=== PATIENT | male | born 1940 | race Caucasian/White ===

== ENCOUNTER 2017-04-26 22:48 | Inpatient (IN) | payer OTHER, BC ==
[~2017-04-26] VITALS: Ht 175.3 cm; Wt 102.1 kg
[~2017-04-26 22:48] MED LIST: AMLODIPINE BESY10 MG PO; ASPIRIN81 M2 PO; CRESTOR5 MG PO; DICLOFENAC SODI75 MG PO; DOCUSATE SODIU100 MG PO; FERROUS SULFAT325 MG PO; KLONOPIN0.5 M1 PO; LIDOCAINE700 MG TD; LOPRESSOR50 MG PO; LYRICA100 MG PO; NIASPAN,SLO-NI500 MG PO; PANTOPRAZOLE SO40 MG PO; PERCOCET 5/31 TABLET PO; REQUIP1 MG PO; SERTRALINE HCL50 MG PO; SYNTHROID100 MCG PO
[2017-04-26 23:43] LABS: EOSINOPHIL (%) 1.8 % (0-5); EOSINOPHIL COUNT 0.2 K/uL (0-0.3); HEMATOCRIT 40.3 % (38.0-50.0); IMMATURE GRANULOCYTE (%) 0.4 % (0.0-0.7); INSTRUMENT ABS NEUTROPHIL CT 9.1 K/uL; LYMPHOCYTE COUNT 0.9 K/uL (1.0-2.8); MCH 32.2 PG (29.0-34.0); MCHC 33.5 G/DL (30.0-36.0); MCV 96.2 FL (86-99); MEAN PLAT.VOLUME 11.2 uM^3 (9.0-12.4); MONOCYTE (%) 6.5 % (3-12); MONOCYTE COUNT 0.7 K/uL (0-0.8); NEUTROPHIL COUNT 9.1 K/uL (1.8-6.4); PLATELET COUNT 138 K/uL (156-360); RBC DIS.WIDTH-CV 13.9 % (11.8-14.6); RED BLOOD COUNT 4.19 M/uL (4.00-5.50)
[2017-04-26 23:55] LABS: CHLORIDE 104 mEq/L (99-109); POTASSIUM 4.2 mEq/L (3.7-5.4); SODIUM 142 mEq/L (136-147)
[2017-04-26 23:57] LABS: GLUCOSE 144 mg/dL (70-99)
[2017-04-26 23:58] LABS: ANION GAP 16 MEQ/L (2-14)
[2017-04-27 00:01] LABS: GFR ESTIMATE (CALCULATED) 49 mL/min/
[2017-04-27 00:02] LABS: UREA NITROGEN (BUN) 23 mg/dL (9-23)
[2017-04-27 00:03] LABS: TROP-I INTERPRETATION NEGATIVE; TROPONIN-I 0.03 ng/mL (0.0-0.30)
[2017-04-27 03:50] VITALS: BP 129/69
[2017-04-27 07:35] LABS: TROP-I INTERPRETATION NEGATIVE; TROPONIN-I 0.02 ng/mL (0.0-0.30)
[2017-04-27 07:59] VITALS: BP 111/60
[2017-04-27 12:45] LABS: ADD MIUA? YES; BILIRUBIN NEGATIVE; BLOOD LARGE; COLOR STRAW ((YELLOW)); GLUCOSE (STRIP) NEGATIVE; KETONES NEGATIVE; LEUKOCYTES NEGATIVE; NITRITE NEGATIVE; PROTEIN (STRIP) NEGATIVE; SPECIFIC GRAVITY 1.005 (1.000-1.030); UROBILINOGEN 0.2 MG/DL (0.2-1.0)
[2017-04-27 12:48] LABS: BACTERIA RARE /HPF; EPITHELIAL CELLS NONE SEEN /HPF; MUCUS TRACE /LPF; RED BLOOD CELLS TNTC /HPF (0-5); UCUL ADDED? YES; WHITE BLOOD CELLS 0-5 /HPF (0-5)
[2017-04-27] MEDS ORDERED: DAILY VITE1 EAC1 PO (15:43)
[2017-04-27] MEDS ORDERED: LASIX40 MG PO (15:47)
[2017-04-27] MEDS ORDERED: VALTREX1000 MG PO (15:48)
[2017-04-27] MEDS ORDERED: TEMOVATE 0.05%30 GM TP (15:48)
[2017-04-27] MEDS ORDERED: EXTRA STRENGTH500 M1 PO (15:51)
[2017-04-27] MEDS ORDERED: ELIQUIS5 MG PO (15:52)
[2017-04-27 23:38] VITALS: BP 126/72
[2017-04-28 06:34] LABS: EOSINOPHIL (%) 0 % (0-5); HEMATOCRIT 36.1 % (38.0-50.0); IMMATURE GRANULOCYTE (%) 0.5 % (0.0-0.7); INSTRUMENT ABS NEUTROPHIL CT 7.2 K/uL; LYMPHOCYTE COUNT 0.4 K/uL (1.0-2.8); MCHC 33.8 G/DL (30.0-36.0); MCV 97.6 FL (86-99); MEAN PLAT.VOLUME 11.2 uM^3 (9.0-12.4); MONOCYTE (%) 2.4 % (3-12); MONOCYTE COUNT 0.2 K/uL (0-0.8); NEUTROPHIL COUNT 7.2 K/uL (1.8-6.4); PLATELET COUNT 110 K/uL (156-360); RBC DIS.WIDTH-SD 50.4 % (39-53); WHITE BLOOD COUNT 7.8 K/uL (4.1-10.2)
[2017-04-28 06:57] LABS: ANION GAP 10 MEQ/L (2-14); CHLORIDE 106 MEQ/L (99-109); GFR ESTIMATE (CALCULATED) 53 mL/min/; GLUCOSE 142 mg/dL (70-99); POTASSIUM 4.5 MEQ/L (3.7-5.4); SAMPLE HEMOLYSIS CHECK 0; SAMPLE ICTERIC CHECK 0; SAMPLE LIPEMIA CHECK 0; SODIUM 142 MEQ/L (136-147); UREA NITROGEN (BUN) 27 mg/dL (9-23)
[2017-04-28 07:48] VITALS: BP 105/61
[2017-04-28 08:22] LABS: INTERNAL CONTROL VALID? YES
[2017-04-28] MEDS ORDERED: PROTONIX40 MG PO (15:34)
[2017-04-28 16:22] VITALS: BP 120/69
[2017-04-29 06:06] LABS: EOSINOPHIL (%) 0 % (0-5); HEMATOCRIT 35.8 % (38.0-50.0); IMMATURE GRANULOCYTE COUNT 0.1 K/uL; INSTRUMENT ABS NEUTROPHIL CT 8.4 K/uL; LYMPHOCYTE COUNT 0.5 K/uL (1.0-2.8); MCH 32.2 PG (29.0-34.0); MCHC 33.2 G/DL (30.0-36.0); MCV 96.8 FL (86-99); MEAN PLAT.VOLUME 11.1 uM^3 (9.0-12.4); MONOCYTE (%) 2.9 % (3-12); MONOCYTE COUNT 0.3 K/uL (0-0.8); NEUTROPHIL (%) 91.1 % (45-76); NEUTROPHIL COUNT 8.4 K/uL (1.8-6.4); PLATELET COUNT 122 K/uL (156-360); RBC DIS.WIDTH-CV 13.9 % (11.8-14.6); RBC DIS.WIDTH-SD 49.6 % (39-53); WHITE BLOOD COUNT 9.2 K/uL (4.1-10.2)
[2017-04-29 06:33] LABS: ANION GAP 11 MEQ/L (2-14); CHLORIDE 107 MEQ/L (99-109); GFR ESTIMATE (CALCULATED) 49 mL/min/; GLUCOSE 127 mg/dL (70-99); POTASSIUM 4.5 MEQ/L (3.7-5.4); SAMPLE HEMOLYSIS CHECK 0; SAMPLE ICTERIC CHECK 0; SAMPLE LIPEMIA CHECK 0; SODIUM 143 MEQ/L (136-147); UREA NITROGEN (BUN) 40 mg/dL (9-23)
[2017-04-29 08:16] VITALS: BP 130/74
[2017-04-29 16:13] VITALS: BP 139/67
[2017-04-30 00:08] VITALS: BP 107/53
[2017-04-30 07:29] VITALS: BP 114/66
[2017-04-30] MEDS ORDERED: LEVAQUIN750 MG PO (10:36)
[2017-04-30] MEDS ORDERED: PREDNISONE20 MG PO (10:36)
[2017-04-30] MEDS ORDERED: ADVAIR HFA120 INHALA IH (10:36)
[2017-04-30] MEDS ORDERED: SPIRIVA RESPIMAT4 GM IH (10:36)
== END 2017-04-30 12:49 | disposition home health service (06) | DRG 194 ==
LOC: EME 22:48 → 5SOUTH 04-27 02:54 → EDOF 04-27 02:54 → ENRESERV 04-27 03:01 → 5SOUTH 04-27 04:11
PROVIDERS: Emergency Medicine; Hospitalist
DX: J18.9 Pneumonia, unspecified organism (principal); J44.0 Chronic obstructive pulmonary disease with (acute) lower respiratory infection; J44.1 Chronic obstructive pulmonary disease with (acute) exacerbation; I12.9 Hypertensive chronic kidney disease with stage 1 through stage 4 chronic kidney disease, or unspecified chronic kidney disease; N18.3 Chronic kidney disease, stage 3 (moderate); E86.0 Dehydration; I48.91 Unspecified atrial fibrillation; E66.01 Morbid (severe) obesity due to excess calories; Z68.34 Body mass index [BMI] 34.0-34.9, adult; K59.00 Constipation, unspecified; G62.9 Polyneuropathy, unspecified; R00.0 Tachycardia, unspecified; I25.10 Atherosclerotic heart disease of native coronary artery without angina pectoris; G89.29 Other chronic pain; M54.5 Low back pain; E78.5 Hyperlipidemia, unspecified; E78.00 Pure hypercholesterolemia, unspecified; H40.9 Unspecified glaucoma; F32.9 Major depressive disorder, single episode, unspecified; Z82.3 Family history of stroke; Z82.49 Family history of ischemic heart disease and other diseases of the circulatory system; Z82.5 Family history of asthma and other chronic lower respiratory diseases; Z87.891 Personal history of nicotine dependence
CPT/HCPCS: 71020; 80048; 81003; 83605; 83880; 84484; 85025; 87040; 87070; 87086; 87205; 87449; 93005; 93306; 93970; 94640; 94640 76; 94760; 94799; 99202; 99281; 99285; J1100; J1956; J2920; J7030; J7512